=== PATIENT | female | born 1975 | race Two or more races ===

== ENCOUNTER 2024-08-22 19:14 | Emergency (ER) | payer MEDICAID, SELFPAY ==
[2024-08-22 19:25] VITALS: BP 136/89; PULSE 100; RESP 20; TEMP 36.8; O2SAT 97
--- NOTE | 2024-08-22 19:34 | PD.EDRME ---
Rapid Medical Screening Exam RME Arrival date/time: 08/22/24 19:14 48 year old female present to ED for c/o of fever, vomiting for 2 days I have greeted and performed a focused initial assessment of this patient. A comprehensive ED assessment and evaluation of the patient, analysis of all test results, and completion of the medical decision making process will be conducted by additional ED providers. Chief Complaint: Extremity Problem,Nontraumatic Time Seen by Provider: 08/22/24 19:19 Vital signs: Vital Signs Temperature 98.3 F 08/22/24 19:25 Pulse Rate 100 08/22/24 19:25 Respiratory Rate 20 08/22/24 19:25 Blood Pressure 136/89 H 08/22/24 19:25 Pulse Oximetry (%) 97 08/22/24 19:25 Oxygen Delivery Method Room Air 08/22/24 19:25
--- NOTE | 2024-08-22 19:38 | XR_ITS ---
Examination: CT soft tissue neck, with intravenous contrast. 2-D coronal reconstructions. 2-D sagittal reconstructions. Date and time of exam :August 23, 2024 at 0246 hrs. Comparison March 22, 2022 Indications: Sore throat difficulty swallowing today. CTDI: vol (mGy):12.8 DLP: (mGycm):2949 Technique: 1.25 mm axial sections of the neck of the obtained. Coronal and sagittal reconstructions have been obtained. Intravenous contrast administered 50 cc Isovue-370. Low dose protocols were performed. One or more of the following dose reduction techniques were used; automated exposure control, adjustment of the mA and/or KV according to patient size, use of iterative reconstruction technique. Findings: Moderate soft tissue tonsillar prominence No tonsillar abscess depicted Small reactive cervical lymph nodes in the carotid triangle region Normal larynx Normal epiglottis Satisfactory alignment cervical vertebral bodies Impression: Moderate soft tissue tonsillar prominence, no tonsillar abscess depicted
[2024-08-22 20:02] LABS: Lactate (Lactic Acid) 1.4 mMol/L (0.4-2.0)
[2024-08-22 20:06] LABS: Basophils # (Auto) 0.1 Thou/mm3 (0.0-0.2); Basophils % (Auto) 1 % (0-2.5); Eosinophils # (Auto) 0.3 Thou/mm3 (0.0-0.5); Eosinophils % (Auto) 3 % (0-10); Hemoglobin 12.8 g/dL (12.0-16.0); Immature Granulocytes % (Auto) 0 % (0-0); Immature Granulocytes Auto 0.02 Thou/mm3 (0.00-0.00); Lymphocytes # (Auto) 3.8 Thou/mm3 (1.0-4.8); Lymphocytes % (Auto) 44 % (10-50); Mean Corpuscular Hemoglobin 27.2 pg (25.0-35.0); Mean Corpuscular Volume 85 fL (80-100); Monocytes # (Auto) 0.6 Thou/mm3 (0.0-0.8); Monocytes % (Auto) 7 % (0-12); Neutrophils % (Auto) 46 % (37-80); Nucleated Red Blood Cell % 0 /100 WBC (0); Platelet Count 324 Thou/mm3 (140-440); RDW Standard Deviation 43.8 fL (36.4-46.3); White Blood Count 8.7 Thou/mm3 (3.6-11.0)
[2024-08-22 20:24] LABS: Alanine Aminotransferase 61 U/L (10-49); Albumin, Serum 4.9 gm/dL (3.5-5.0); Albumin/Globulin Ratio 1.5 (1.2-2.2); Alkaline Phosphatase 107 U/L (46-116); Anion Gap 7 (7-16); Aspartate Amino Transferase 51 U/L (0-34); BUN/Creatinine Ratio 11 Ratio (12-20); Bilirubin,Total 0.3 mg/dL (0.3-1.2); Blood Urea Nitrogen 8 mg/dL (9-23); Calcium 9.4 mg/dL (8.3-10.6); Calcium (Corrected) 9.4 mg/dL (8.5-10.1); Carbon Dioxide 28.7 mMol/L (20.0-31.0); Chloride 103 mMol/L (98-107); Creatinine (Component) 0.7 mg/dL (0.6-1.3); Globulin 3.3 gm/dL (2.3-3.5); Glucose 95 mg/dL (74-106); Osmolality,Calculated 275 (275-295); Potassium 3.8 mMol/L (3.4-5.1); Sodium 139 mMol/L (136-145); Total Protein 8.2 gm/dL (5.7-8.2); eGFR > 60 See Note
[2024-08-22 20:25] LABS: HCG,Qualitative Serum Negative
[2024-08-22 21:00] LABS: Strep A Rapid Negative (Negative)
[2024-08-23 02:05] VITALS: BP 109/80; PULSE 87; RESP 18; TEMP 36.7; O2SAT 97
--- NOTE | 2024-08-23 03:19 | PRELIM_ITS ---
CT scan of the neck with intravenous contrast (axial sections with sagittal and coronal reformats) Sergey owens 2024 at 0246 hoursClinical History: Sore throat, painful swallowing.Comparison: No prior st udy is available for comparison.Findings:There is mild enlargement of the bilateral palatine tonsils with associated mildoropharyngeal airway narrowing.The nasopharynx, hypopharynx, supraglottic and inf raglottic larynx, vocal cords and upper trachea are unremarkable.The epiglottis and aryepiglottic fol ds appear unremarkable.The vessels of the neck are well opacified. No filling defect is seen.The supe rficial soft tissues of the neck are unremarkable. Intraparotid lymph nodes are seen bilaterally.C3/C 4 vertebral block is seen.Impression:Findings suspicious for tonsillitis. Recommend clinical correlat ion.Other findings as described above. Report Electronically Signed By: Lasha Street 08/23/2024 3:18:05 AM [EST]
--- NOTE | 2024-08-23 03:54 | EDNOTE_ITS ---
ED Extremity Problem RME/HPI General Chief complaint: Extremity Problem,Nontraumatic Stated complaint: PAIN IN LEFT GROIN, SORE THROAT Time Seen by Provider: 08/22/24 19:19 Source: patient Arrival date/time: 08/22/24 19:14 Mode of arrival: ambulatory Limitations: no limitations RME / HPI RME / HPI Narrative: 08/22/24 19:14 48 year old female present to ED for c/o of fever, vomiting for 2 days I have greeted and performed a focused initial assessment of this patient. A comprehensive ED assessment and evaluation of the patient, analysis of all test results, and completion of the medical decision making process will be conducted by additional ED providers. --- DR. KHANNA MAIN ED EVALUATION: 48-year-old female with history of hypertension who presents to the emergency department for complaints of sore throat. Patient notes onset began today and she has had difficulty swallowing. She also reports fever, nausea, and vomiting. She denies any other medical complaints. Related Data Previous Rx's ?Medication ?Instructions ?Recorded ibuprofen 600 mg tablet 600 mg PO TID PRN pain #14 tabs 06/18/22 omeprazole 20 mg capsule,delayed 20 mg PO QDAY #30 caps 07/08/23 release cetirizine 10 mg tablet (Zyrtec) 10 mg PO QDAY PRN allergy symptoms 05/23/24 #30 tabs prednisone 50 mg tablet 50 mg PO QDAY #5 tabs 05/23/24 ibuprofen 800 mg tablet 800 mg PO TID PRN pain #30 tabs 06/03/24 amoxicillin 500 mg tablet 500 mg PO TID #21 tabs 08/23/24 Allergies Allergy/AdvReac Type Severity Reaction Status Date / Time No Known Allergies Allergy Verified 06/03/24 10:21 Review of Systems Review of Systems Systems Reviewed: All systems reviewed, normal except as documented Past Medical History Past Medical History NEUROLOGIC: Negative Neurological Disorders CARDIAC: Positive Cardiac Disorders (HTN); Negative Congestive Heart Failure RESPIRATORY: Positive Asthma; Negative Chronic Obstructive Pulmonary Disease (COPD) GASTROINTESTINAL: Negative Gastrointestinal Disorders GENITOURINARY: Negative Genitourinary Disorders or Renal Disease MUSCULOSKELETAL: Negative Musculoskeletal Disorders ENDOCRINE: Negative Diabetes Mellitus Type 1 or Diabetes Mellitus Type 2 HEMATOLOGIC: Negative Sickle Cell Disease Social History SMOKING STATUS: Never smoker ED Exam General Limitations: Present no limitations General appearance: Present alert and in no apparent distress Head Head exam: Present atraumatic, normocephalic and normal inspection Eye Eye exam: Present normal appearance, PERRL and EOMI ENT ENT exam: Present normal exam, normal oropharynx, TM's normal bilaterally and normal external ear exam Expanded ENT Exam Throat exam: Present tonsillar erythema (bilaterally) and other (uvula midline) Neck Neck exam: Present normal inspection and full ROM Chest Chest inspection: Present normal inspection and symmetric chest wall rise Respiratory Respiratory exam: Present normal lung sounds bilaterally Cardiovascular Cardiovascular exam: Present regular rate, normal rhythm and normal heart sounds Abdominal Exam Abdominal exam: Present normal bowel sounds Extremities Exam Extremities exam: Present normal inspection and full ROM Back Exam Back exam: Present normal inspection and full ROM Neurological Exam Neurological exam: Present alert, oriented X3 and CN II-XII intact Psychiatric Psychiatric exam: Present normal affect and normal mood; Absent depressed Skin Skin exam: Present warm, dry, intact and normal color Course Quality Measures none Orders Category Date Time Status Bedside COVID-19 Antigen Test NOW Care 08/22/24 19:37 Completed Bedside Influenza A&B Antigen Test NOW Care 08/22/24 19:[address] Screening NOW Care 08/22/24 19:38 Completed Insert IV NOW Care 08/23/24 00:[address] soft tissue neck w con Stat Exams 08/22/24 19:38 Completed Blood Culture (Lab) Stat Lab 08/22/24 19:52 Completed CBC Stat Lab 08/22/24 19:57 Completed CMP [Comprehensive Metabolic Panel] Stat Lab 08/22/24 19:57 Completed HCG,Qualitative Serum Stat Lab 08/22/24 19:57 Completed Lactic Acid [Lactate (Lactic Acid)] Stat Lab 08/22/24 19:57 Completed [place] Screen Stat Lab 08/22/24 19:57 Completed Strep A Rapid Stat Lab 08/22/24 19:48 Completed Amoxicillin Cap [Amoxil Cap] Med 08/23/24 03:58 Discontinued 500 mg PO X1 ONE Dexamethasone Inj [Decadron Inj] Med 08/23/24 03:58 Discontinued 10 mg PO X1 ONE Ketorolac Inj [Toradol Inj] Med 08/22/24 19:39 Discontinued 30 mg IVP X1 ONE Ketorolac Inj [Toradol Inj] Med 08/23/24 03:57 Discontinued 30 mg IVP X1 ONE MethylPREDNISolone.* [SoluMEDROL Inj] Med 08/22/24 19:39 Discontinued 125 mg IVP X1 ONE Vital Signs Vital signs: Vital Signs Temperature 98.3 F 08/22/24 19:25 Pulse Rate 100 08/22/24 19:25 Respiratory Rate 20 08/22/24 19:25 Blood Pressure 136/89 H 08/22/24 19:25 Pulse Oximetry (%) 97 08/22/24 19:25 Oxygen Delivery Method Room Air 08/22/24 19:25 Extremity Problem MDM Narrative MDM Narrative:: ? Scribe Attestation: I, Renetta Goodman, am scribing for and in the presence of Dr. Madrigal. Provider Notation: Although this document has been carefully reviewed, there may still be some phonetic and other typographical errors. These errors are purely grammatical due to imperfections in the software program and should not be construed in any way to compromise the substance of the patient's medical care during this visit. Patient data External records reviewed:: [facility] previous records Clinical information provided by:: patient Social determinants that could affect healthcare access:: none Patient has the following chronic illnesses:: HTN How is presenting disease/condition affected by chronic disease/condition?: uneffected by Evaluation data The following diagnostics were reviewed and interpreted by me:: lab results and radiology exam(s) Lab and/or radiology exams considered but not ordered:: None Interpretation Summary: I personally reviewed the radiology data and agree with the radiologist's interpretation. CT scan of the neck with intravenous contrast (axial sections with sagittal and coronal reformats) August 23, 2024 at 0246 hours Clinical History: Sore throat, painful swallowing. Comparison: No prior study is available for comparison. Findings: There is mild enlargement of the bilateral palatine tonsils with associated mildoropharyngeal airway narrowing. The nasopharynx, hypopharynx, supraglottic and infraglottic larynx, vocal cords and upper trachea are unremarkable. The epiglottis and aryepiglottic folds appear unremarkable. The vessels of the neck are well opacified. No filling defect is seen. The superficial soft tissues of the neck are unremarkable. Intraparotid lymph nodes are seen bilaterally. C3/C4 vertebral block is seen. Impression: Findings suspicious for tonsillitis. Recommend clinical correlation. Other findings as described above. Report Electronically Signed By: Lasha Street 08/23/2024 3:18:05 AM [EST] Medications / Prescriptions Medications or Prescriptions considered but not ordered:: None Medication administrations:: Medication Administration History Discontinued Medications Amoxicillin (Amoxicillin 250 Mg Capsule) 500 mg PO X1 ONE Stop: 08/23/24 03:59 Last Admin: 08/23/24 04:18 Dose: 500 mg Documented By: CCT Dexamethasone Sodium Phosphate (Dexamethasone Sod Phos Inj 10 Mg/Ml Vial) 10 mg PO X1 ONE Stop: 08/23/24 03:59 Last Admin: 08/23/24 04:18 Dose: 10 mg Documented By: CCT Ketorolac Tromethamine (Ketorolac Inj 30 Mg/Ml Vial) 30 mg IVP X1 ONE Stop: 08/22/24 19:40 Last Admin: 08/23/24 01:11 Dose: Not Given Documented By: AC Non-Admin Reason: Change of Condition Ketorolac Tromethamine (Ketorolac Inj 30 Mg/Ml Vial) 30 mg IVP X1 ONE Stop: 08/23/24 03:58 Last Admin: 08/23/24 04:18 Dose: 30 mg Documented By: CCT Methylprednisolone Sodium Succinate (Methylprednisolone Sod Succ 62.5 Mg/Ml 2ml Vial) 125 mg IVP X1 ONE Stop: 08/22/24 19:40 Last Admin: 08/23/24 01:11 Dose: Not Given Documented By: AC Non-Admin Reason: Change of Condition As above Consultations Consultation(s) initiated? (list below): No Diagnosis Extremity Problem Differential Diagnosis: other (strep throat, pharyngitis, tonsillitis) Most likely diagnosis given after review of the tests above:: See clinical impression below Admission Indicated Admission indicated?: not indicated Admission Request Was there a request for admission?: No Disposition Plan Disposition Plan: Discharge Discharge Attestation Discharge Attestation: The patient and all family members were given an opportunity to ask questions and understood the discharge instructions. Discharge instructions specifically effects, indications for sooner follow up or return to the emergency department, and the expected course of current diagnosis. Patient condition: Stable Discharge Plan Plan Patient Disposition: HOME (Self Care) Patient condition on transfer: Stable Prescriptions/Referrals Prescriptions/Med Rec: New amoxicillin 500 mg tablet 500 mg PO TID Qty: 21 0RF No Action omeprazole 20 mg capsule,delayed release(DR/EC) 20 mg PO QDAY Qty: 30 0RF ibuprofen 800 mg tablet 800 mg PO TID PRN (Reason: pain) Qty: 30 0RF ibuprofen 600 mg tablet 600 mg PO TID PRN (Reason: pain) Qty: 14 0RF prednisone 50 mg tablet 50 mg PO QDAY Qty: 5 0RF cetirizine [Zyrtec] 10 mg tablet 10 mg PO QDAY PRN (Reason: allergy symptoms) Qty: 30 0RF Referrals: Elizabeth Hussein FNP [Primary Care Provider] - In 1 week Problem List Clinical Impression: Acute streptococcal pharyngitis Patient/Caregiver Discharge Instructions Education Materials: ED Pharyngitis, Strep (Presumed) Additional Instructions: Take the antibiotics as prescribed. Return to emergency department for worsening symptoms or any other concerns. Ensure that you take your antibiotics completely. You can take skbt-ywo-snlwttt Motrin 600 mg 3 times a day as needed for the first 2 to 3 days. You will need to use alternate form of control if you or on control pills for the next 30 days since you will be on antibiotics. Print Language: [place] Island[place] Stand Alone Forms: Vicky Award Info., Patient Portal Info Letter
[2024-08-23] MEDS: DEXAMETHASONE SOD PHOS INJ 10 MG/ML VIAL PO (04:18)
[2024-08-23] MEDS: KETOROLAC INJ 30 MG/ML VIAL IVP (04:18)
[2024-08-23] MEDS: AMOXICILLIN 250 MG CAPSULE 500 MG PO (04:18)
[2024-08-23 04:40] VITALS: BP 129/65; PULSE 82; RESP 16; TEMP 36.5; O2SAT 97
[2024-08-23 04:58] LABS: Mono Screen Negative (Negative)
== END 2024-08-23 04:40 | disposition home or self-care (01) ==
PROVIDERS: Physician Assistant; Emergency Provider Emergency Medicine; PCP Nurse Practitioner Family
DX: J02.0 Streptococcal pharyngitis (principal); I10 Essential (primary) hypertension
CPT/HCPCS: 36415; 70491; 80053; 83605; 84703; 85025; 86308; 87040; 87400; 87651; 87811; 96374; 96375; 99285; A4649; J1100; J1885; Q9967; A9270

== ENCOUNTER 2024-09-14 19:19 | Emergency (ER) | payer MEDICAID, SELFPAY ==
[2024-09-14 20:33] VITALS: BP 160/91; PULSE 112; RESP 18; TEMP 36.9; O2SAT 97
--- NOTE | 2024-09-14 20:52 | XR_ITS ---
Examination: Shoulder,left, 3 views Technique: Shoulder AP internal rotation, AP external rotation, Y view shoulder, 3 views Exam date and time :September [id number] hours INDICATIONS: Left shoulder pain months FINDINGS: No shoulder fracture or dislocation No AC joint separation No significant arthritic change IMPRESSION: No fracture or arthritic change
--- NOTE | 2024-09-14 20:52 | XR_ITS ---
Examination: Cervical spine 3 views TECHNIQUE: AP lateral: AP odontoid cervical spine 3 views Standing time: September 14, [id number] hours INDICATIONS: Neck pain radiating to left shoulder and arm several months. FINDINGS: Straightening normal cervical lordosis Congenital cervical fusion C3-C4 No cervical fracture Intact odontoid Mild disc narrowing C5-C6 and C6-C7 IMPRESSION: Moderate degenerative disc disease C5-C6, C6-C7 Elective MRI cervical spine without contrast follow up would best assess for acquired spinal stenosis reducing radicular left arm symptoms
--- NOTE | 2024-09-14 21:02 | EDNOTE_ITS ---
ED General RME/HPI General Chief complaint: General Adult/Misc Complain Stated complaint: LEFT NECK,SHOULDER,ARM PAIN X 2 MONTHS Time Seen by Provider: 09/14/24 19:55 Arrival date/time: 09/14/24 19:19 48-year-old female reports with complaints of 2-month history of the left side neck left arm and left shoulder pain. Patient does not recall trauma or injury but states that she is suddenly developed numbness or tingling in the arms and hands. She denies history of carpal tunnel syndrome or any cervical spine surgeries. Patient states that she has been taking skqi-kxu-isceuwa medications with no improvement of symptoms Limitations: no limitations Related Data Previous Rx's ?Medication ?Instructions ?Recorded ibuprofen 600 mg tablet 600 mg PO TID PRN pain #14 tabs 06/18/22 omeprazole 20 mg capsule,delayed 20 mg PO QDAY #30 caps 07/08/23 release cetirizine 10 mg tablet (Zyrtec) 10 mg PO QDAY PRN allergy symptoms 05/23/24 #30 tabs prednisone 50 mg tablet 50 mg PO QDAY #5 tabs 05/23/24 ibuprofen 800 mg tablet 800 mg PO TID PRN pain #30 tabs 06/03/24 amoxicillin 500 mg tablet 500 mg PO TID #21 tabs 08/23/24 Allergies Allergy/AdvReac Type Severity Reaction Status Date / Time No Known Allergies Allergy Verified 06/03/24 10:21 Review of Systems Constitutional Constitutional: Denies chills and Denies fever(s) Cardiovascular Cardiovascular: Denies chest pain and Denies dyspnea Respiratory Respiratory: Denies cough and Denies dyspnea Musculoskeletal Musculoskeletal: Reports arthralgias, Denies deformity, Denies joint swelling, Reports numbness and Reports tingling Integumentary/Breasts Skin/Breast: Denies rash and Denies skin pain Neurologic Neurologic: Reports numbness and Reports tingling Psychiatric Psychiatric: Denies anxiety and Denies depression Hematologic/Lymphatic Hematologic/Lymphatic: Denies easy bleeding and Denies easy bruising Past Medical History Past Medical History NEUROLOGIC: Negative Neurological Disorders CARDIAC: Positive Cardiac Disorders (HTN); Negative Congestive Heart Failure RESPIRATORY: Positive Asthma; Negative Chronic Obstructive Pulmonary Disease (COPD) GASTROINTESTINAL: Negative Gastrointestinal Disorders GENITOURINARY: Negative Genitourinary Disorders or Renal Disease MUSCULOSKELETAL: Negative Musculoskeletal Disorders ENDOCRINE: Negative Diabetes Mellitus Type 1 or Diabetes Mellitus Type 2 HEMATOLOGIC: Negative Sickle Cell Disease Social History SMOKING STATUS: Never smoker ED Exam General Limitations: Present no limitations General appearance: Present alert and in no apparent distress Head Head exam: Present atraumatic Eye Eye exam: Present normal appearance, PERRL and EOMI ENT ENT exam: Present normal exam, normal oropharynx and mucous membranes moist Neck Neck exam: Present normal inspection, full ROM and trachea midline Chest Chest inspection: Present normal inspection and symmetric chest wall rise Respiratory Respiratory exam: Present normal lung sounds bilaterally Cardiovascular Cardiovascular exam: Present regular rate, normal rhythm and normal heart sounds Abdominal Exam Abdominal exam: Present soft and normal bowel sounds Extremities Exam Extremities exam: Present normal inspection and full ROM Back Exam Back exam: Present normal inspection and full ROM Neurological Exam Neurological exam: Present alert, oriented X3 and CN II-XII intact Psychiatric Psychiatric exam: Present normal affect and normal mood Skin Skin exam: Present warm, dry, intact and normal color Course Quality Measures none Orders Category Date Time Status XR cervical spine 2-3V Stat Exams 09/14/24 20:52 Taken XR shoulder LT min 2V Stat Exams 09/14/24 20:52 Taken Vital Signs Vital signs: Vital Signs Temperature 98.4 F 09/14/24 20:33 Pulse Rate 112 H 09/14/24 20:33 Respiratory Rate 18 09/14/24 20:33 Blood Pressure 160/91 H 09/14/24 20:33 Pulse Oximetry (%) 97 09/14/24 20:33 Oxygen Delivery Method Room Air 09/14/24 20:33 MDM Patient data External records reviewed:: None Clinical information provided by:: patient Social determinants that could affect healthcare access:: none Patient has the following chronic illnesses:: none How is presenting disease/condition affected by chronic disease/condition?: no chronic disease Evaluation data The following diagnostics were reviewed and interpreted by me:: radiology exam(s) Lab and/or radiology exams considered but not ordered:: none Interpretation Summary: Negative for fractures or dislocations of the left shoulder and negative for derangements of the cervical spine Medications Medications considered but not ordered:: None Medication administrations:: Toradol 30 mg IM Consultations Consultation(s) initiated? (list below): No Diagnosis Differential Diagnosis ED Complaint MDM: Cervical strain, left shoulder strain, carpal tunnel syndrome Most likely diagnosis given after review of the tests above:: Cervical strain, left shoulder strain Admission Indicated Admission indicated?: not indicated Explain why admission is indicated or not indicated:: Mild condition Admission Request Was there a request for admission?: No Disposition Plan Disposition Plan: Discharge Discharge Attestation Discharge Attestation: The patient and all family members were given an opportunity to ask questions and understood the discharge instructions. Discharge instructions specifically effects, indications for sooner follow up or return to the emergency department, and the expected course of current diagnosis. Patient condition: Stable Medical Decision Making Differential Diagnosis Differential Diagnosis: Cervical strain, left shoulder strain, carpal tunnel syndrome Discharge Plan Plan Patient Disposition: HOME (Self Care) Prescriptions/Referrals Prescriptions/Med Rec: No Action omeprazole 20 mg capsule,delayed release(DR/EC) 20 mg PO QDAY Qty: 30 0RF ibuprofen 800 mg tablet 800 mg PO TID PRN (Reason: pain) Qty: 30 0RF ibuprofen 600 mg tablet 600 mg PO TID PRN (Reason: pain) Qty: 14 0RF prednisone 50 mg tablet 50 mg PO QDAY Qty: 5 0RF cetirizine [Zyrtec] 10 mg tablet 10 mg PO QDAY PRN (Reason: allergy symptoms) Qty: 30 0RF amoxicillin 500 mg tablet 500 mg PO TID Qty: 21 0RF Referrals: Denisse Zazueta NP [Primary Care Provider] - In 1 week Problem List Clinical Impression: Acute cervical myofascial strain, Acute pain of left shoulder Patient/Caregiver Discharge Instructions Discharge Activity: activity as tolerated Education Materials: Self-Care for Strains and Sprains, ED Arthralgia Additional Instructions: Your x-rays are negative you should take evue-pvy-wqdediv medication such as Tylenol ibuprofen as needed for pain and follow-up with your primary care provider in 3 days for reevaluation. It is possible that you may be developing carpal tunnel syndrome Print Language: [place] Stand Alone Forms: Vicky Award Info., Patient Portal Info Letter
[2024-09-14] MEDS: KETOROLAC INJ 60 MG/2 ML VIAL 30 MG IM (21:54)
== END 2024-09-14 21:59 | disposition home or self-care (01) ==
PROVIDERS: Emergency Provider Emergency Medicine; PCP Nurse Practitioner Family
DX: S16.1XXA Strain of muscle, fascia and tendon at neck level, initial encounter (principal); M25.512 Pain in left shoulder; X58.XXXA Exposure to other specified factors, initial encounter
CPT/HCPCS: 72040; 73030; 96372; 99283; J1885

== ENCOUNTER 2025-04-20 13:42 | Emergency (ER) | payer MEDICAID, SELFPAY ==
[2025-04-20 13:58] VITALS: BP 146/85; PULSE 100; RESP 18; TEMP 36.9; O2SAT 98
--- NOTE | 2025-04-20 14:09 | PD.EDADULT ---
ED General RME/HPI General Chief complaint: General Adult/Misc Complain Stated complaint: DRY MOUTH FOR 2 WKS, TONGUE IS WHITE Time Seen by Provider: 04/20/25 13:49 Source: patient Arrival date/time: 04/20/25 13:42 41-year-old female with no known medical history presents to the emergency room with a chief complaint of dry mouth x 2 weeks. Mode of arrival: ambulatory Limitations: no limitations Related Data Previous Rx's ?Medication ?Instructions ?Recorded ibuprofen 600 mg tablet 600 mg PO TID PRN pain #14 tabs 06/18/22 omeprazole 20 mg capsule,delayed 20 mg PO QDAY #30 caps 07/08/23 release cetirizine 10 mg tablet (Zyrtec) 10 mg PO QDAY PRN allergy symptoms 05/23/24 #30 tabs prednisone 50 mg tablet 50 mg PO QDAY #5 tabs 05/23/24 ibuprofen 800 mg tablet 800 mg PO TID PRN pain #30 tabs 06/03/24 amoxicillin 500 mg tablet 500 mg PO TID #21 tabs 08/23/24 Allergies Allergy/AdvReac Type Severity Reaction Status Date / Time No Known Allergies Allergy Verified 04/20/25 13:45 Review of Systems Review of Systems Systems Reviewed: All systems reviewed, normal except as documented Constitutional Constitutional: Reports system reviewed and no additional complaints, except as documented, Denies fatigue, Denies fever(s), Denies headache(s) and Denies weakness Eyes Eyes: Reports system reviewed and no additional complaints, except as documented, Denies blurry vision and Denies change in vision ENT Ears, Nose, Mouth, and Throat: Reports system reviewed and no additional complaints, except as documented, Denies otalgia, Denies headache(s), Denies nasal congestion, Denies throat swelling and Denies vertigo Cardiovascular Cardiovascular: Reports system reviewed and no additional complaints, except as documented, Denies chest pain, Denies dyspnea and Denies dyspnea on exertion Respiratory Respiratory: Reports system reviewed and no additional complaints, except as documented, Denies chest congestion, Denies cough, Denies dyspnea, Denies dyspnea on exertion and Denies wheezing Gastrointestinal Gastrointestinal: Reports system reviewed and no additional complaints, except as documented, Denies abdominal pain, Denies cramping, Denies nausea and Denies vomiting Genitourinary Genitourinary: Reports system reviewed and no additional complaints, except as documented Musculoskeletal Musculoskeletal: Reports system reviewed and no additional complaints, except as documented and Denies back pain Integumentary/Breasts Skin/Breast: Reports system reviewed and no additional complaints, except as documented and Denies wounds Neurologic Neurologic: Reports system reviewed and no additional complaints, except as documented, Denies confusion, Denies headache(s), Denies lack of coordination, Denies vertigo and Denies weakness Psychiatric Psychiatric: Reports system reviewed and no additional complaints, except as documented, Denies anxiety, Denies confusion, Denies depression, Denies paranoia, Denies suicidal ideation and Denies tactile hallucinations Endocrine Endocrine: Reports system reviewed and no additional complaints, except as documented and Denies fatigue Hematologic/Lymphatic Hematologic/Lymphatic: Reports system reviewed and no additional complaints, except as documented and Denies lymphadenopathy Allergic/Immunologic Allergic/Immunologic: Reports system reviewed and no additional complaints, except as documented, Denies throat swelling, Denies urticaria and Denies wheezing Past Medical History Past Medical History NEUROLOGIC: Negative Neurological Disorders CARDIAC: Positive Cardiac Disorders (HTN); Negative Congestive Heart Failure RESPIRATORY: Positive Asthma; Negative Chronic Obstructive Pulmonary Disease (COPD) GASTROINTESTINAL: Negative Gastrointestinal Disorders GENITOURINARY: Negative Genitourinary Disorders or Renal Disease MUSCULOSKELETAL: Negative Musculoskeletal Disorders ENDOCRINE: Negative Diabetes Mellitus Type 1 or Diabetes Mellitus Type 2 HEMATOLOGIC: Negative Sickle Cell Disease Social History SMOKING STATUS: Never smoker ED Exam General Limitations: Present no limitations General appearance: Present alert and in no apparent distress Head Head exam: Present atraumatic Eye Eye exam: Present normal appearance, PERRL and EOMI ENT ENT exam: Present normal exam, normal oropharynx and mucous membranes moist; Absent mucous membranes dry, TM's normal bilaterally or normal external ear exam Expanded ENT Exam External ear exam: Absent normal external inspection Mouth exam: Present normal external inspection; Absent drooling, trismus, lip swelling, tongue normal, tongue elevation, tongue swelling, laceration or other Throat exam: Present normal inspection Neck Neck exam: Present normal inspection, full ROM and trachea midline Chest Chest inspection: Present normal inspection and symmetric chest wall rise Respiratory Respiratory exam: Present normal lung sounds bilaterally Cardiovascular Cardiovascular exam: Present regular rate, normal rhythm and normal heart sounds Abdominal Exam Abdominal exam: Present soft and normal bowel sounds Extremities Exam Extremities exam: Present normal inspection and full ROM Back Exam Back exam: Present normal inspection and full ROM Neurological Exam Neurological exam: Present alert, oriented X3 and CN II-XII intact Psychiatric Psychiatric exam: Present normal affect and normal mood Skin Skin exam: Present warm, dry, intact and normal color Course Quality Measures none Orders Category Date Time Status A1C [Glycohemoglobin w (eAG)] Stat Lab 04/20/25 14:18 Completed CBC Stat Lab 04/20/25 14:18 Completed CMP [Comprehensive Metabolic Panel] Stat Lab 04/20/25 14:18 Completed Vital Signs Vital signs: Vital Signs Temperature 98.4 F 04/20/25 13:58 Pulse Rate 100 04/20/25 13:58 Respiratory Rate 18 04/20/25 13:58 Blood Pressure 146/85 H 04/20/25 13:58 Pulse Oximetry (%) 98 04/20/25 13:58 Oxygen Delivery Method Room Air 04/20/25 13:58 Discharge Plan Plan Patient Disposition: HOME (Self Care) Discharge Disposition comment: Stable Prescriptions/Referrals Prescriptions/Med Rec: No Action omeprazole 20 mg capsule,delayed release(DR/EC) 20 mg PO QDAY Qty: 30 0RF ibuprofen 800 mg tablet 800 mg PO TID PRN (Reason: pain) Qty: 30 0RF ibuprofen 600 mg tablet 600 mg PO TID PRN (Reason: pain) Qty: 14 0RF prednisone 50 mg tablet 50 mg PO QDAY Qty: 5 0RF cetirizine [Zyrtec] 10 mg tablet 10 mg PO QDAY PRN (Reason: allergy symptoms) Qty: 30 0RF amoxicillin 500 mg tablet 500 mg PO TID Qty: 21 0RF Referrals: Patrick Dixon MD [Primary Care Provider] - In 1 week Problem List Clinical Impression: Mouth dryness Patient/Caregiver Discharge Instructions Additional Instructions: Por favor, consulte con moore m?dico de cabecera en las pr?ximas 24 a 48 horas. Si nota alg?n empeoramiento de los signos o s?ntomas, acuda inmediatamente a urgencias. Print Language: Greenlandic Stand Alone Forms: Vicky Award Info., Patient Portal Info Letter PA/WIRELESS CONSTRUCTION MANAGER Supervising Physician PA/WIRELESS CONSTRUCTION MANAGER Supervising Physician: Dr. BINGHAM MDM Narrative MDM hospital course: 41-year-old female with no known medical history presents to the emergency room with a chief complaint of dry mouth x 2 weeks. Patient is hemodynamically stable and in no apparent distress Physical examination shows moist mucous membranes there is no trismus there is no evidence of any acute findings in the mouth. The tongue is nonswollen. Patient was discharged and educated to follow-up with primary care provider in the next 24 to 48 hours and return to the emergency room for any evidence of worsening signs or symptoms Clinical Information Provided by none Medical Records Reviewed None Meds/Rx Considered, not Ordered None Labs/Rad/Tests considered, not Ordered None Chronic Illness/Social Conditions which may negatively complicate care or outcome(s)-explain: None or not applicable EKG EKG not done Lab Interpretation Labs: none Imaging Imaging interpretation: none Medication Administration(s) none Diagnosis Differential diagnosis: Mouth dryness/hyperglycemia Most likely dx, and/or detailed dx discussion: Mouth dryness Dispositon Disposition: Discharge Home
[2025-04-20 14:38] LABS: Basophils # (Auto) 0.0 Thou/mm3 (0.0-0.2); Basophils % (Auto) 1 % (0-2.5); Eosinophils # (Auto) 0.2 Thou/mm3 (0.0-0.5); Eosinophils % (Auto) 3 % (0-10); Hematocrit 39.6 % (36.0-46.0); Hemoglobin 12.8 g/dL (12.0-16.0); Immature Granulocytes Auto 0.01 Thou/mm3 (0.00-0.00); Lymphocytes # (Auto) 3.0 Thou/mm3 (1.0-4.8); Lymphocytes % (Auto) 45 % (10-50); Mean Corpuscular HGB Conc 32.3 g/dl (31.0-37.0); Mean Corpuscular Hemoglobin 28.3 pg (25.0-35.0); Mean Corpuscular Volume 87 fL (80-100); Monocytes # (Auto) 0.6 Thou/mm3 (0.0-0.8); Monocytes % (Auto) 8 % (0-12); Neutrophils # (Auto) 2.9 Thou/mm3 (1.8-7.7); Neutrophils % (Auto) 43 % (37-80); Nucleated Red Blood Cell # 0.00 Thou/mm3 (0.00-0.00); Nucleated Red Blood Cell % 0 /100 WBC (0); Platelet Count 325 Thou/mm3 (140-440); RDW Standard Deviation 47.8 fL (36.4-46.3); Red Blood Count 4.53 Miln/mm3 (4.00-5.20); White Blood Count 6.7 Thou/mm3 (3.6-11.0)
[2025-04-20 14:43] LABS: Glucose Estimated Average 117 mg/dL (80-131); Hemoglobin A1C 5.7 % Hgb (4.8-6.0)
[2025-04-20 15:06] LABS: Alanine Aminotransferase 48 U/L (10-49); Albumin, Serum 4.8 gm/dL (3.5-5.0); Albumin/Globulin Ratio 1.8 (1.2-2.2); Alkaline Phosphatase 90 U/L (46-116); Anion Gap 9 (7-16); Aspartate Amino Transferase 56 U/L (0-34); BUN/Creatinine Ratio 9 Ratio (12-20); Bilirubin,Total 0.6 mg/dL (0.3-1.2); Blood Urea Nitrogen 7 mg/dL (9-23); Calcium 9.9 mg/dL (8.3-10.6); Calcium (Corrected) 9.9 mg/dL (8.5-10.1); Carbon Dioxide 27.8 mMol/L (20.0-31.0); Chloride 105 mMol/L (98-107); Creatinine (Component) 0.8 mg/dL (0.6-1.3); Estimated Creatinine Clearance 73.6 mL/min (>60); Globulin 2.7 gm/dL (2.3-3.5); Glucose 96 mg/dL (74-106); Osmolality,Calculated 281 (275-295); Potassium 3.9 mMol/L (3.4-5.1); Sodium 142 mMol/L (136-145); Total Protein 7.5 gm/dL (5.7-8.2); eGFR > 60 See Note
== END 2025-04-20 16:07 | disposition home or self-care (01) ==
PROVIDERS: Nurse Practitioner Family; Emergency Provider Emergency Medicine; PCP Family Medicine
DX: R68.2 Dry mouth, unspecified (principal)
CPT/HCPCS: 36415; 80053; 83036; 85025; 99283

== ENCOUNTER 2025-06-12 18:23 | Emergency (ER) | payer MEDICAID, SELFPAY ==
[2025-06-12 19:03] VITALS: BP 156/85; PULSE 94; RESP 20; TEMP 36.7; O2SAT 97
--- NOTE | 2025-06-12 19:25 | XR_ITS ---
Examination: CT abdomen and pelvis without contrast. Coronal 3-D reconstructions. Sagittal 2-D reconstructions. Date and time of exam: June 12, 2025, 1933 hours INDICATIONS: Left-sided abdominal pain flank pain beginning 2 days ago CTDI: vol (mGy): 10.1 DLP: (mGycm): 513 Technique: Axial images of the abdomen have been obtained, 3 mm slice thickness Intravenous contrast material has not been administered. Low dose protocols were performed. One or more of the following dose reduction techniques were used; automated exposure control, adjustment of the mA and/or KV according to patient size, use of iterative reconstruction technique. Findings: Diffuse fatty infiltration throughout the liver No gallstones No pancreatic or splenic mass No adrenal mass 2 mm left renal calculus Aorta normal size Normal appendix 6.5 cm septated left pelvic cyst No uterine mass Contracted urinary bladder Moderate disc narrowing L5-S1 IMPRESSION: 2 mm left renal calculus No hydronephrosis or ureteral calculi Normal appendix Recommend pelvic sonography to assess septated 6.5 cm left pelvic cyst
[2025-06-12 19:40] LABS: Collection Type, Urine Clean Catch
[2025-06-12 19:47] LABS: Bilirubin,Urine Negative (Negative); Blood,Urine Negative (Negative); Clarity,Urine Clear (Clear/Hazy); Color,Urine Lt-Yellow (Lt Yel-Yel); Glucose, Urine Negative (Negative); Ketones,Urine Negative (Negative); Leukocyte Esterase,Urine Positive (Negative); Nitrite,Urine Negative (Negative); PH,Urine 6.0 (5.0-7.0); Protein,Urine Negative (Neg - Trace); RBC,Urine 9 /hpf (0-3); Specific Gravity,Urine 1.025 (1.001-1.035); Squamous Epithelial Cell,Urine 7 /hpf (0-5); Urobilinogen,Urine Negative mg/dL (0.0-1.0); WBC,Urine 3 /hpf (0-5)
[2025-06-12 19:56] LABS: HCG Qualitative,Urine Negative
[2025-06-12 20:03] LABS: Basophils # (Auto) 0.1 Thou/mm3 (0.0-0.2); Basophils % (Auto) 1 % (0-2.5); Eosinophils # (Auto) 0.3 Thou/mm3 (0.0-0.5); Eosinophils % (Auto) 3 % (0-10); Hematocrit 37.0 % (36.0-46.0); Hemoglobin 12.1 g/dL (12.0-16.0); Immature Granulocytes Auto 0.03 Thou/mm3 (0.00-0.00); Lymphocytes # (Auto) 3.8 Thou/mm3 (1.0-4.8); Lymphocytes % (Auto) 41 % (10-50); Mean Corpuscular HGB Conc 32.7 g/dl (31.0-37.0); Mean Corpuscular Hemoglobin 28.6 pg (25.0-35.0); Mean Corpuscular Volume 88 fL (80-100); Monocytes # (Auto) 0.6 Thou/mm3 (0.0-0.8); Monocytes % (Auto) 6 % (0-12); Neutrophils # (Auto) 4.5 Thou/mm3 (1.8-7.7); Neutrophils % (Auto) 49 % (37-80); Nucleated Red Blood Cell # 0.00 Thou/mm3 (0.00-0.00); Nucleated Red Blood Cell % 0 /100 WBC (0); Platelet Count 309 Thou/mm3 (140-440); RDW Standard Deviation 43.9 fL (36.4-46.3); Red Blood Count 4.23 Miln/mm3 (4.00-5.20); White Blood Count 9.2 Thou/mm3 (3.6-11.0)
[2025-06-12 20:49] LABS: Alanine Aminotransferase 20 U/L (10-49); Albumin, Serum 4.9 gm/dL (3.5-5.0); Albumin/Globulin Ratio 1.9 (1.2-2.2); Alkaline Phosphatase 88 U/L (46-116); Anion Gap 10 (7-16); Aspartate Amino Transferase 25 U/L (0-34); BUN/Creatinine Ratio 15 Ratio (12-20); Bilirubin,Total 0.4 mg/dL (0.3-1.2); Blood Urea Nitrogen 9 mg/dL (9-23); Calcium 9.3 mg/dL (8.3-10.6); Calcium (Corrected) 9.3 mg/dL (8.5-10.1); Carbon Dioxide 25.9 mMol/L (20.0-31.0); Chloride 103 mMol/L (98-107); Creatinine (Component) 0.6 mg/dL (0.6-1.3); Globulin 2.6 gm/dL (2.3-3.5); Glucose 84 mg/dL (74-106); Osmolality,Calculated 275 (275-295); Potassium 3.9 mMol/L (3.4-5.1); Sodium 139 mMol/L (136-145); Total Protein 7.5 gm/dL (5.7-8.2); eGFR > 60 See Note
--- NOTE | 2025-06-12 22:15 | XR_ITS ---
Examination: Pelvic ultrasound, transabdominal, complete Technique: Transabdominal ultrasound of the pelvis performed using grayscale imaging Date and time of exam: June 12, 2025, 10:10 p.m. INDICATIONS: Left sided pelvic pain beginning 6 days ago, CT study June 12, 2025 2 mm left renal calculus, no hydronephrosis, 6.5 cm left pelvic septated cyst FINDINGS: Uterus 10.5 cm endometrial stripe 0.9 cm No uterine mass Right ovary obscured by bowel gas Left ovary obscured by bowel gas, left adnexal cystic mass 10.1 x 7.0 x 6.5 cm, differential would include cystadenoma IMPRESSION: Large septated cystic mass in the left adnexal region, recommend MRI pelvis follow-up pre and postcontrast
[2025-06-12 22:58] LABS: Lipase 44 U/L (12-53)
[2025-06-13 00:15] VITALS: BP 153/79; PULSE 86; RESP 20; TEMP 36.6; O2SAT 96
[2025-06-13] MEDS: HYDROcodone/APAP 5/325 TABLET 1 TAB PO (00:43)
[2025-06-13] MEDS: FAMOTIDINE 20 MG TABLET 40 MG PO (00:43)
[2025-06-13] MEDS: ONDANSETRON ODT 4 MG TABRAP PO (00:44)
--- NOTE | 2025-06-13 03:04 | PD.EDABDPN ---
ED Abdominal Pain RME/HPI General Chief Complaint: Abdominal Pain Stated complaint: ABD PAIN, GERD Time seen by provider: 06/12/25 18:34 Arrival date/time: 06/12/25 18:23 This is a case of 49-year-old female with history of gastritis came in in the emergency room due to left-sided abdominal pain for 1 week shaded with nausea vomiting denies any diarrhea constipation persistence of the symptoms thus patient decided to start consulted in the emergency room Limitations: no limitations Related Data Previous Rx's ?Medication ?Instructions ?Recorded ibuprofen 600 mg tablet 600 mg PO TID PRN pain #14 tabs 06/18/22 omeprazole 20 mg capsule,delayed 20 mg PO QDAY #30 caps 07/08/23 release cetirizine 10 mg tablet (Zyrtec) 10 mg PO QDAY PRN allergy symptoms 05/23/24 #30 tabs prednisone 50 mg tablet 50 mg PO QDAY #5 tabs 05/23/24 ibuprofen 800 mg tablet 800 mg PO TID PRN pain #30 tabs 06/03/24 amoxicillin 500 mg tablet 500 mg PO TID #21 tabs 08/23/24 famotidine 20 mg tablet (Pepcid) 20 mg PO BID #30 tabs 06/13/25 hydrocodone 5 mg-acetaminophen 325 1 tab PO Q6H PRN pain #12 tabs 06/13/25 mg tablet omeprazole 20 mg capsule,delayed 20 mg PO QDAY #30 caps 06/13/25 release ondansetron 4 mg disintegrating 4 mg PO Q8H PRN nausea and 06/13/25 tablet vomiting #10 tabs Allergies Allergy/AdvReac Type Severity Reaction Status Date / Time No Known Allergies Allergy Verified 04/20/25 13:45 Review of Systems Review of Systems Systems Reviewed: All systems reviewed, normal except as documented Constitutional Constitutional: Reports system reviewed and no additional complaints, except as documented and Reports as per HPI ENT Ears, Nose, Mouth, and Throat: Denies dysphagia and Denies odynophagia Cardiovascular Cardiovascular: Reports system reviewed and no additional complaints, except as documented and Reports as per HPI Respiratory Respiratory: Reports system reviewed and no additional complaints, except as documented and Reports as per HPI Gastrointestinal Gastrointestinal: Reports system reviewed and no additional complaints, except as documented, Reports as per HPI, Reports abdominal pain, Denies belching, Denies bloating, Denies change in bowel habits, Denies change in stool character, Denies coffee ground emesis, Denies constipation, Denies cramping, Denies diarrhea, Denies dyspepsia, Denies dysphagia, Denies early satiety, Denies excessive flatus, Denies fecal incontinence, Denies heartburn, Denies hematemesis, Denies hematochezia, Denies loose stools, Denies melena, Reports nausea, Denies odynophagia, Denies tenesmus and Reports vomiting Genitourinary Genitourinary: Reports system reviewed and no additional complaints, except as documented and Reports as per HPI Integumentary/Breasts Skin/Breast: Reports system reviewed and no additional complaints, except as documented and Reports as per HPI Neurologic Neurologic: Reports system reviewed and no additional complaints, except as documented and Reports as per HPI Past Medical History Past Medical History NEUROLOGIC: Negative Neurological Disorders CARDIAC: Positive Cardiac Disorders (HTN); Negative Congestive Heart Failure RESPIRATORY: Positive Asthma; Negative Chronic Obstructive Pulmonary Disease (COPD) GASTROINTESTINAL: Negative Gastrointestinal Disorders GENITOURINARY: Negative Genitourinary Disorders or Renal Disease MUSCULOSKELETAL: Negative Musculoskeletal Disorders ENDOCRINE: Negative Diabetes Mellitus Type 1 or Diabetes Mellitus Type 2 HEMATOLOGIC: Negative Sickle Cell Disease Social History SMOKING STATUS: Never smoker ED Exam General Limitations: Present no limitations General appearance: Present alert, in no apparent distress and other (Patient is awake alert oriented not in distress nontoxic looking well-hydrated well-nourished) Head Head exam: Present atraumatic, normocephalic and normal inspection Eye Eye exam: Present normal appearance, PERRL and EOMI ENT ENT exam: Present normal exam, normal oropharynx and mucous membranes moist Neck Neck exam: Present normal inspection, full ROM and trachea midline; Absent tenderness, meningismus, lymphadenopathy or thyromegaly Chest Chest inspection: Present normal inspection and symmetric chest wall rise; Absent tenderness Respiratory Respiratory exam: Present normal lung sounds bilaterally; Absent respiratory distress, wheezes, stridor, accessory muscle use or prolonged expiratory phase Cardiovascular Cardiovascular exam: Present regular rate, normal rhythm and normal heart sounds; Absent bradycardia, tachycardia, irregular rhythm, systolic murmur or diastolic murmur Abdominal Exam Abdominal exam: Present soft, tenderness (Mild tenderness on the left upper and left lower quadrant no CVA tenderness) and normal bowel sounds; Absent distention, guarding, rebound, rigidity, diminished bowel sounds, hyperactive bowel sounds, hypoactive bowel sounds, organomegaly, trauma, psoas sign, obturator sign, Villanueva's sign, Rovsing's sign, tenderness at McBurney's Point or hernia Extremities Exam Extremities exam: Present normal inspection and full ROM Back Exam Back exam: Present normal inspection and full ROM Neurological Exam Neurological exam: Present alert, oriented X3, CN II-XII intact, normal gait and reflexes normal; Absent motor sensory deficit Psychiatric Psychiatric exam: Present normal affect and normal mood Skin Skin exam: Present warm, dry, intact and normal color Course Quality Measures none Orders Category Date Time Status CT abdomen pelvis wo con Stat Exams 06/12/25 19:25 Completed US pelvic complete Stat Exams 06/12/25 22:15 Completed CBC Stat Lab 06/12/25 19:43 Completed Comprehensive Metabolic Panel Stat Lab 06/12/25 19:43 Completed HCG Qualitative,Urine Stat Lab 06/12/25 19:36 Completed Lipase Stat Lab 06/12/25 19:43 Completed Urinalysis Stat Lab 06/12/25 19:36 Completed Famotidine [Pepcid] Med 06/13/25 00:11 Discontinued 40 mg PO X1 ONE HYDROcodone*/APAP 5/325 [[place] 5/325] Med 06/13/25 00:11 Discontinued 1 tab PO X1 ONE Ondansetron Odt [Zofran Odt] Med 06/13/25 00:11 Discontinued 4 mg PO X1 ONE Vital Signs Vital signs: Vital Signs Temperature 98.0 F 06/12/25 19:03 Pulse Rate 94 06/12/25 19:03 Respiratory Rate 20 06/12/25 19:03 Blood Pressure 156/85 H 06/12/25 19:03 Pulse Oximetry (%) 97 06/12/25 19:03 Oxygen Delivery Method Room Air 06/12/25 19:03 Oxygen saturation is 97% on room air Abdominal Pain MDM MDM Narrative MDM Narrative:: This is a case of 49-year-old female with history of gastritis came in in the emergency room due to left-sided abdominal pain for 1 week shaded with nausea vomiting denies any diarrhea constipation persistence of the symptoms thus patient decided to start consulted in the emergency room physical examination patient is awake alert oriented not in distress nontoxic looking well-hydrated well-nourished noted mild to moderate tenderness on the left upper and left lower quadrant no guarding no rebound no rigidity no CVA tenderness negative psoas negative straight and negative Rovsing's negative McBurney's negative Villanueva sign negative CVA tenderness blood test showed no leukocytosis no anemia kidney and liver function is normal no electrolyte send lipase is normal urinalysis is normal patient CT scan showed a fatty infiltrate CT millimeter left renal calculus and left pelvic cyst ultrasound showed a left adnexal cyst patient was given [place] patient was advised to follow-up with urologist for kidney stone-OB centrifugal chiller technician for left adnexal cyst and hand fretted instrument maker for gastritis patient was prescribed with omeprazole and Pepcid for gastritis worsening symptoms or any emergent concerns she was advised to return to the emergency room or call 911 Patient was discharged with comfortable condition walking with stable gait. Patient verbalized no further complains explained diagnosis and answered patient question. Patient is comfortable with the proposed management plan including the need to follow up with his/her primary care physician and any specialist if applicable Discussed patient for any urgent condition or worsening sx, He/She needed to go to emergency room immediately or call 911. Patient acknowledge the responsibility to follow up as instructed and to monitor her/his symptoms. For any persistence of the symptoms for more than 3-5 days return precaution advised. Discussed the result of the test and was given printed discharge instruction Patient data External records reviewed:: [facility] previous records Clinical information provided by:: patient Social determinants that could affect healthcare access:: none Patient has the following chronic illnesses:: None How is presenting disease/condition affected by chronic disease/condition?: no chronic disease Evaluation data The following diagnostics were reviewed and interpreted by me:: lab results and radiology exam(s) Lab and/or radiology exams considered but not ordered:: Reviewed Interpretation Summary: Reviewed Medications / Prescriptions Medications or Prescriptions considered but not ordered:: Given Medication administrations:: Medication Administration History Discontinued Medications Hydrocodone Bitart/Acetaminophen (Hydrocodone/[place] 5/325 Tablet) 1 tab PO X1 ONE Stop: 06/13/25 00:12 Last Admin: 06/13/25 00:43 Dose: 1 tab Documented By: GIOVANNI Famotidine (Famotidine 20 Mg Tablet) 40 mg PO X1 ONE Stop: 06/13/25 00:12 Last Admin: 06/13/25 00:43 Dose: 40 mg Documented By: GIOVANNI Ondansetron HCl (Ondansetron Odt 4 Mg Tabrap) 4 mg PO X1 ONE; Protocol Stop: 06/13/25 00:12 Last Admin: 06/13/25 00:44 Dose: 4 mg Documented By: JE Given Consultations Consultation(s) initiated? (list below): No Diagnosis Differential diagnosis abdominal pain: abdominal pain, acute appendicitis, calculus of kidney, diverticulitis and endometriosis Most likely diagnosis given after review of the tests above:: Nephrolithiasis left adnexal cyst gastritis Admission Indicated Admission indicated?: not indicated Explain why admission is indicated or not indicated:: Not indicated Admission Request Was there a request for admission?: No Admission Attestation Admission request attestation: Not indicated Disposition Plan Disposition Plan: Discharge Discharge Attestation Discharge Attestation: The patient and all family members were given an opportunity to ask questions and understood the discharge instructions. Discharge instructions specifically effects, indications for sooner follow up or return to the emergency department, and the expected course of current diagnosis. Patient condition: Stable Discharge Plan Plan Patient Disposition: HOME (Self Care) Patient condition on transfer: Stable Prescriptions/Referrals Prescriptions/Med Rec: New hydrocodone-acetaminophen 5-325 mg tablet 1 tab PO Q6H MDD max 4 tabs per day PRN (Reason: pain) Qty: 12 0RF famotidine [Pepcid] 20 mg tablet 20 mg PO BID Qty: 30 0RF omeprazole 20 mg capsule,delayed release(DR/EC) 20 mg PO QDAY Qty: 30 0RF ondansetron 4 mg tablet,disintegrating 4 mg PO Q8H PRN (Reason: nausea and vomiting) Qty: 10 0RF No Action omeprazole 20 mg capsule,delayed release(DR/EC) 20 mg PO QDAY Qty: 30 0RF ibuprofen 800 mg tablet 800 mg PO TID PRN (Reason: pain) Qty: 30 0RF ibuprofen 600 mg tablet 600 mg PO TID PRN (Reason: pain) Qty: 14 0RF prednisone 50 mg tablet 50 mg PO QDAY Qty: 5 0RF cetirizine [Zyrtec] 10 mg tablet 10 mg PO QDAY PRN (Reason: allergy symptoms) Qty: 30 0RF amoxicillin 500 mg tablet 500 mg PO TID Qty: 21 0RF Referrals: No Primary/Family,Physician [Primary Care Provider] - In 1 week Problem List Clinical Impression: Abdominal pain, Gastritis, Adnexal cyst, Left nephrolithiasis Patient/Caregiver Discharge Instructions Education Materials: Abdominal Pain, Ovarian Cysts, Kidney Stones Your Evaluation, ED Gastritis (Adult) Additional Instructions: Follow-up with your primary care physician in 2 days for reevaluation and to be referred to hand fretted instrument maker for further evaluation and treatment of gastritis for possible EGD and to be referred to OB centrifugal chiller technician for further evaluation and treatment of adnexal cyst recurrence persistent worsening symptoms or any emergent concern call 911 or go to the nearest emergency room avoid skipping of meals avoid spicy food avoid fatty fried high cholesterol food avoid alcohol soda or coffee and to be referred to urologist for further evaluation and treatment of kidney stone Print Language: Hungarian Stand Alone Forms: Vicky Award Info., Work/School Release, Patient Portal Info Letter PA/MACIEJ Supervising Physician MERE/MACIEJ Supervising Physician: Dr. Roldan
== END 2025-06-13 00:52 | disposition home or self-care (01) ==
PROVIDERS: Nurse Practitioner Family; Emergency Provider Emergency Medicine
DX: N20.0 Calculus of kidney (principal); K29.70 Gastritis, unspecified, without bleeding
CPT/HCPCS: 36415; 74176; 76856; 80053; 81001; 81025; 83690; 85025; 99282; Q0162; A9270